=== PATIENT | male | born 1945 | race Hispanic/Latino ===

== ENCOUNTER 2021-01-18 08:17 | Inpatient (IN) | payer MEDICARE, OTHER ==
[~2021-01-18] VITALS: Ht 177.8 cm; Wt 122.9 kg
[2021-01-18] VITALS (7 sets, daily range): BP systolic 117–128; BP diastolic 72–108
[2021-01-18] MEDS ORDERED: DILTIAZEM HCL 5 MG/ML 5 ML VIAL IV STA (08:22)
[2021-01-18] MEDS ORDERED: LISINOPRIL-HCT1 EACH PO (08:39)
[2021-01-18] MEDS ORDERED: DOXAZOSIN MESYLA2 MG PO (08:39)
[2021-01-18] MEDS ORDERED: LEVOTHYROXINE100 MC1 IV (08:39)
[2021-01-18] MEDS ORDERED: SIMVASTATIN20 MG PO (08:39)
[2021-01-18] MEDS ORDERED: AMANTADINE100 M1 PO (08:39)
[2021-01-18] MEDS ORDERED: SYNTHROID75 MCG PO (08:39)
[2021-01-18] MEDS ORDERED: METFORMIN HCL500 MG PO (08:44)
[2021-01-18 09:04] LABS: BASOPHILS # (AUTO) 0.1 (0.0-0.1); BASOPHILS % 0.3 % (0.0-1.0); EOSINOPHILS % 0.1 % (0.0-6.0); HEMATOCRIT 48.4 % (38.2-49.6); HEMOGLOBIN 15.9 g/dL (14.0-18.0); LYMPHOCYTES # (AUTO) 1.1 (1.0-3.2); LYMPHOCYTES % 7.3 % (18.0-39.1); MEAN CORPUSCULAR HEMOGLOBIN 31.6 pg (28-32); MEAN CORPUSCULAR HGB CONC 32.9 g/dL (31-35); MEAN CORPUSCULAR VOLUME 96.2 fL (81-99); MONOCYTES # (AUTO) 1.4 (0.2-0.8); MONOCYTES % 9.4 % (4.4-11.3); NEUTROPHILS # (AUTO) 12.1 (2.1-6.9); NEUTROPHILS % 82.6 % (38.7-80.0); PLATELET COUNT 168 x10e3/uL (140-360); RED BLOOD COUNT 5.03 x10e6/uL (4.3-5.7)
[2021-01-18 09:17] LABS: INR 1.12; PROTHROMBIN TIME 14.9 seconds (11.9-14.5)
[2021-01-18 09:18] LABS: PARTIAL THROMBOPLASTIN TIME 34.5 seconds (23.8-35.5)
[2021-01-18 09:27] LABS: ALBUMIN 3.7 g/dL (3.5-5.0); ANION GAP 17.7 mmol/L (8-16); CALCIUM 9.4 mg/dL (8.4-10.2); CREATININE, SERUM 1.11 mg/dL (0.72-1.25); MAGNESIUM 1.9 MG/DL (1.3-2.1); POTASSIUM 3.7 mmol/L (3.5-5.1)
[2021-01-18 09:28] LABS: B-TYPE NATRIURETIC PEPTIDE2 83.8 pg/mL (0-100)
[2021-01-18] MEDS ORDERED: DILTIAZEM HCL 60 MG TAB PO SCH (09:45)
[2021-01-18 09:46] LABS: CREATINE KINASE MB 0.7 ng/mL (0-5.0); THYROID STIMULATING HORMONE 0.875 uIU/mL (0.350-4.940)
[2021-01-18] MEDS ORDERED: CEFTRIAXONE 1 GM VIAL ONE (09:58)
[2021-01-18] MEDS ORDERED: CEFTRIAXONE 1 GM in SODIUM CHLORIDE 0.9% 50ML 50 ML IV ONE (10:00)
[2021-01-18] MEDS: ENOXAPARIN SODIUM INJ 100 MG/ML SYR SC SCH ×2 (10:35→21:37)
[2021-01-18 10:43] LABS: CLARITY,URINE CLEAR (CLEAR); COLOR,URINE YELLOW (YELLOW); KETONES,URINE 2+ (NEGATIVE); LEUKOCYTE ESTERASE ,URINE NEGATIVE (NEGATIVE); NITRITE,URINE NEGATIVE (NEGATIVE); PROTEIN,URINE DIPSTICK 1+ (NEGATIVE); URINE UROBILINOGEN 1 mg/dL (0.2 - 1)
[2021-01-18] MEDS ORDERED: ONDANSETRON HCL INJ 2MG/ML 2ML 2 MG/ML VIAL IV PRN (11:00)
[2021-01-18] MEDS ORDERED: DEXTROSE 50% SYRINGE 50 ML IV PRN (11:00)
[2021-01-18 11:01] LABS: BACTERIA,URINE MODERATE /HPF; EPITHELIAL CELLS,URINE FEW /LPF; RBC,URINE 0-5 /HPF (0-5)
[2021-01-18] MEDS: INSULIN LISPRO 100 UNIT/1 ML 3ML VIAL SQ SCH ×3 (11:30→20:23)
[2021-01-18] MEDS: GUAIFENESIN 600 MG TAB PO SCH ×2 (12:41→16:50)
[2021-01-18] MEDS: METOPROLOL TARTRATE 25 MG TAB PO SCH ×2 (12:41→22:14)
[2021-01-18] MEDS ORDERED: BENZONATATE 100 MG CAP PO PRN (13:15)
[2021-01-18 15:15] LABS: CREATINE KINASE 41 IU/L (30-200)
[2021-01-18] MEDS ORDERED: FUROSEMIDE INJ 10 MG/ML 4 ML VIAL IV ONE (17:30)
[2021-01-18] MEDS ORDERED: POTASSIUM CHLORIDE 20 MEQ TAB CR PO STA (17:52)
[2021-01-18] MEDS ORDERED: MAGNESIUM SULFATE 2GM/50ML 50 ML IV ONE (18:00)
[2021-01-18] MEDS ORDERED: SODIUM CHLORIDE 0.9% 50ML 50 ML ONE (18:40)
[2021-01-18] MEDS: SIMVASTATIN 20 MG TAB PO SCH (20:15)
[2021-01-18] MEDS: MORPHINE SULFATE INJ 2 MG/ML SYR IV PRN (20:15)
[2021-01-19] VITALS (12 sets, daily range): BP systolic 82–121; BP diastolic 58–73
[2021-01-19] MEDS: LEVOTHYROXINE SODIUM 100 MCG TAB PO SCH (05:25)
[2021-01-19 05:56] LABS: BASOPHILS # (AUTO) 0.1 (0.0-0.1); BASOPHILS % 0.4 % (0.0-1.0); EOSINOPHILS # (AUTO) 0.1 (0.0-0.4); EOSINOPHILS % 0.6 % (0.0-6.0); HEMATOCRIT 43.9 % (38.2-49.6); HEMOGLOBIN 14.7 g/dL (14.0-18.0); LYMPHOCYTES # (AUTO) 1.5 (1.0-3.2); LYMPHOCYTES % 11.8 % (18.0-39.1); MEAN CORPUSCULAR HEMOGLOBIN 31.5 pg (28-32); MEAN CORPUSCULAR HGB CONC 33.5 g/dL (31-35); MONOCYTES # (AUTO) 1.3 (0.2-0.8); MONOCYTES % 10.3 % (4.4-11.3); NEUTROPHILS # (AUTO) 9.6 (2.1-6.9); NEUTROPHILS % 76.3 % (38.7-80.0); PLATELET COUNT 166 x10e3/uL (140-360); RED BLOOD COUNT 4.67 x10e6/uL (4.3-5.7); RED CELL DISTRIBUTION WIDTH 13.1 % (11.7-14.4)
[2021-01-19 06:25] LABS: MAGNESIUM 2.1 MG/DL (1.3-2.1)
[2021-01-19 06:26] LABS: ALBUMIN 3.2 g/dL (3.5-5.0); ALBUMIN/GLOBULIN RATIO 0.8 (0.8-2.0); ANION GAP 13.8 mmol/L (8-16); CHOL/HDL RATIO 2.1 (3.9-4.7); CREATININE, SERUM 1.05 mg/dL (0.72-1.25); POTASSIUM 3.8 mmol/L (3.5-5.1)
[2021-01-19 06:46] LABS: THYROID STIMULATING HORMONE 1.203 uIU/mL (0.350-4.940)
[2021-01-19 07:07] LABS: CREATINE KINASE MB 0.7 ng/mL (0-5.0)
[2021-01-19] MEDS: INSULIN LISPRO 100 UNIT/1 ML 3ML VIAL SQ SCH ×4 (07:30→21:00)
[2021-01-19] MEDS: CEFTRIAXONE 1 GM in SODIUM CHLORIDE 0.9% 50ML 50 ML IV SCH (09:21)
[2021-01-19] MEDS: DOXAZOSIN MESYLATE 2 MG TAB PO SCH (09:21)
[2021-01-19] MEDS: GUAIFENESIN 600 MG TAB PO SCH ×2 (09:22→17:03)
[2021-01-19] MEDS ORDERED: FUROSEMIDE INJ 10 MG/ML 4 ML VIAL IV ONE (10:30)
[2021-01-19] MEDS ORDERED: APIXABAN 5 MG TABLET PO SCH (10:30)
[2021-01-19] MEDS ORDERED: ENOXAPARIN SODIUM INJ 100 MG/ML SYR SC SCH ×2 (11:00)
[2021-01-19] MEDS ORDERED: ENOXAPARIN SODIUM INJ 100 MG/ML SYR SC ONE (11:30)
[2021-01-19] MEDS: METOPROLOL TARTRATE 25 MG TAB PO SCH ×2 (11:53→23:00)
[2021-01-19] MEDS ORDERED: ONDANSETRON HCL 4 MG ORAL DISINTEGRATING TAB PO PRN (14:15)
[2021-01-19] MEDS: AMANTADINE HCL 100 MG CAP PO SCH (17:03)
[2021-01-19] MEDS: SIMVASTATIN 20 MG TAB PO SCH (21:01)
[2021-01-20] VITALS (19 sets, daily range): BP systolic 80–110; BP diastolic 57–77
[2021-01-20 05:56] LABS: BASOPHILS # (AUTO) 0.1 (0.0-0.1); BASOPHILS % 0.6 % (0.0-1.0); EOSINOPHILS # (AUTO) 0.1 (0.0-0.4); EOSINOPHILS % 1.3 % (0.0-6.0); HEMATOCRIT 40.5 % (38.2-49.6); HEMOGLOBIN 13.3 g/dL (14.0-18.0); LYMPHOCYTES # (AUTO) 1.7 (1.0-3.2); LYMPHOCYTES % 17.6 % (18.0-39.1); MEAN CORPUSCULAR HEMOGLOBIN 31.4 pg (28-32); MEAN CORPUSCULAR HGB CONC 32.8 g/dL (31-35); MEAN CORPUSCULAR VOLUME 95.5 fL (81-99); MONOCYTES % 10.4 % (4.4-11.3); NEUTROPHILS # (AUTO) 6.6 (2.1-6.9); NEUTROPHILS % 69.8 % (38.7-80.0); PLATELET COUNT 158 x10e3/uL (140-360); RED BLOOD COUNT 4.24 x10e6/uL (4.3-5.7)
[2021-01-20] MEDS: LEVOTHYROXINE SODIUM 100 MCG TAB PO SCH (06:00)
[2021-01-20 06:39] LABS: ANION GAP 16.2 mmol/L (8-16); CALCIUM 8.8 mg/dL (8.4-10.2); CREATININE, SERUM 1.21 mg/dL (0.72-1.25); POTASSIUM 3.2 mmol/L (3.5-5.1)
[2021-01-20] MEDS ORDERED: HEPARIN SOD (PORCINE) 1000 UNIT/ML 30ML ONE (07:13)
[2021-01-20] MEDS ORDERED: LIDOCAINE HCL 2% LOCAL 20 ML VIAL ONE (07:13)
[2021-01-20] MEDS ORDERED: MIDAZOLAM HCL 2 MG/2 ML VIAL ONE (07:13)
[2021-01-20] MEDS ORDERED: FENTANYL CITRATE/PF 100MCG/2 ML INJ ONE (07:13)
[2021-01-20] MEDS ORDERED: VERAPAMIL HCL 2.5 MG/ML 2 ML VIAL ONE (07:13)
[2021-01-20] MEDS ORDERED: IOPAMIDOL 370 MG/ML 200 ML INFUS..BTL INJ ONE (07:15)
[2021-01-20] MEDS ORDERED: HEPARIN SOD/SOD CHLORIDE 2,000 ML ONE (07:15)
[2021-01-20] MEDS ORDERED: NITROGLYCERIN/D5W 200 MCG/ML 250 ML ONE (07:15)
[2021-01-20] MEDS ORDERED: SODIUM CHLORIDE 0.9% 1000ML 1,000 ML ONE (07:15)
[2021-01-20] MEDS: INSULIN LISPRO 100 UNIT/1 ML 3ML VIAL SQ SCH ×4 (07:30→20:48)
[2021-01-20] MEDS: CEFTRIAXONE 1 GM in SODIUM CHLORIDE 0.9% 50ML 50 ML IV SCH (08:41)
[2021-01-20] MEDS: DOXAZOSIN MESYLATE 2 MG TAB PO SCH (08:41)
[2021-01-20] MEDS: AMANTADINE HCL 100 MG CAP PO SCH (08:42)
[2021-01-20] MEDS: GUAIFENESIN 600 MG TAB PO SCH ×2 (08:42→17:07)
[2021-01-20] MEDS ORDERED: CLOPIDOGREL BISULFATE 75 MG TAB ONE ×2 (09:04→09:05)
[2021-01-20] MEDS ORDERED: ASPIRIN 325 MG TAB ONE (09:04)
[2021-01-20] MEDS ORDERED: ACETAMINOPHEN 325 MG TAB PO PRN (10:15)
[2021-01-20] MEDS ORDERED: SODIUM CHLORIDE 0.9% 1000ML 1,000 ML IV SCH (10:45)
[2021-01-20] MEDS: METOPROLOL TARTRATE 25 MG TAB PO SCH ×2 (11:00→23:42)
[2021-01-20] MEDS ORDERED: ACETAMINOPHEN 325 MG/10 ML UDC PO PRN (11:15)
[2021-01-20] MEDS: MORPHINE SULFATE INJ 2 MG/ML SYR IV PRN ×2 (11:45→15:11)
[2021-01-20] MEDS ORDERED: NITROGLYCERIN 0.4 MG SUBL SL ONE (12:15)
[2021-01-20] MEDS ORDERED: BENZONATATE 100 MG CAP PO PRN (13:30)
[2021-01-20 14:27] LABS: CREATINE KINASE MB 1.3 ng/mL (0-5.0)
[2021-01-20] MEDS ORDERED: APIXABAN 5 MG TABLET PO SCH (17:00)
[2021-01-20] MEDS ORDERED: POTASSIUM CHLORIDE 20 MEQ TAB CR PO NR (20:00)
[2021-01-20 20:45] LABS: CREATINE KINASE MB 1.1 ng/mL (0-5.0)
[2021-01-21] VITALS (7 sets, daily range): BP systolic 104–120; BP diastolic 66–84
[2021-01-21 05:01] LABS: BASOPHILS # (AUTO) 0.1 (0.0-0.1); BASOPHILS % 0.5 % (0.0-1.0); EOSINOPHILS # (AUTO) 0.1 (0.0-0.4); EOSINOPHILS % 0.7 % (0.0-6.0); HEMATOCRIT 39.2 % (38.2-49.6); HEMOGLOBIN 13.2 g/dL (14.0-18.0); LYMPHOCYTES # (AUTO) 1.2 (1.0-3.2); LYMPHOCYTES % 11.5 % (18.0-39.1); MEAN CORPUSCULAR HEMOGLOBIN 31.3 pg (28-32); MEAN CORPUSCULAR HGB CONC 33.7 g/dL (31-35); MEAN CORPUSCULAR VOLUME 92.9 fL (81-99); MONOCYTES # (AUTO) 1.1 (0.2-0.8); NEUTROPHILS # (AUTO) 7.7 (2.1-6.9); NEUTROPHILS % 75.9 % (38.7-80.0); PLATELET COUNT 157 x10e3/uL (140-360); RED BLOOD COUNT 4.22 x10e6/uL (4.3-5.7); RED CELL DISTRIBUTION WIDTH 12.9 % (11.7-14.4)
[2021-01-21 05:28] LABS: ALBUMIN 2.7 g/dL (3.5-5.0); ALBUMIN/GLOBULIN RATIO 0.8 (0.8-2.0); ANION GAP 13.8 mmol/L (8-16); CALCIUM 8.6 mg/dL (8.4-10.2); CREATININE, SERUM 1.12 mg/dL (0.72-1.25); POTASSIUM 3.8 mmol/L (3.5-5.1)
[2021-01-21 05:50] LABS: CREATINE KINASE MB 1.6 ng/mL (0-5.0)
[2021-01-21] MEDS: LEVOTHYROXINE SODIUM 100 MCG TAB PO SCH (06:00)
[2021-01-21] MEDS: INSULIN LISPRO 100 UNIT/1 ML 3ML VIAL SQ SCH ×4 (07:30→21:00)
[2021-01-21] MEDS: AMANTADINE HCL 100 MG CAP PO SCH (08:50)
[2021-01-21] MEDS: CEFTRIAXONE 1 GM in SODIUM CHLORIDE 0.9% 50ML 50 ML IV SCH (08:50)
[2021-01-21] MEDS: CLOPIDOGREL BISULFATE 75 MG TAB PO SCH (08:50)
[2021-01-21] MEDS: GUAIFENESIN 600 MG TAB PO SCH ×2 (08:50→17:22)
[2021-01-21] MEDS: ATORVASTATIN 40 MG TAB PO SCH (08:50)
[2021-01-21] MEDS: METOPROLOL TARTRATE 25 MG TAB PO SCH (12:21)
[2021-01-21] MEDS ORDERED: ASPIRIN 81 MG CHEW TAB PO ONE (12:30)
[2021-01-21] MEDS: AMIODARONE HCL 200 MG TAB PO SCH ×2 (13:40→17:22)
[2021-01-21] MEDS: VALSARTAN/SACUBITRIL 24MG/26MG 1 EA TAB PO SCH (17:22)
[2021-01-22] MEDS: METOPROLOL TARTRATE 25 MG TAB PO SCH (00:51)
[2021-01-22 00:58] VITALS: BP 136/90
[2021-01-22 05:42] VITALS: BP 104/79
[2021-01-22] MEDS: LEVOTHYROXINE SODIUM 100 MCG TAB PO SCH (06:04)
[2021-01-22 07:13] VITALS: BP 110/73
[2021-01-22] MEDS: INSULIN LISPRO 100 UNIT/1 ML 3ML VIAL SQ SCH (07:30)
[2021-01-22 08:27] VITALS: BP 110/73
[2021-01-22] MEDS: GUAIFENESIN 600 MG TAB PO SCH (09:00)
[2021-01-22] MEDS: ATORVASTATIN 40 MG TAB PO SCH (09:00)
[2021-01-22] MEDS: AMIODARONE HCL 200 MG TAB PO SCH (09:00)
[2021-01-22] MEDS: CEFTRIAXONE 1 GM in SODIUM CHLORIDE 0.9% 50ML 50 ML IV SCH (09:00)
[2021-01-22] MEDS: CLOPIDOGREL BISULFATE 75 MG TAB PO SCH (09:00)
[2021-01-22] MEDS: VALSARTAN/SACUBITRIL 24MG/26MG 1 EA TAB PO SCH (09:00)
[2021-01-22] MEDS: AMANTADINE HCL 100 MG CAP PO SCH (09:00)
[2021-01-22 10:16] LABS: BASOPHILS # (AUTO) 0.1 (0.0-0.1); BASOPHILS % 0.6 % (0.0-1.0); EOSINOPHILS # (AUTO) 0.1 (0.0-0.4); HEMOGLOBIN 14.5 g/dL (14.0-18.0); LYMPHOCYTES % 11.9 % (18.0-39.1); MEAN CORPUSCULAR HEMOGLOBIN 31.7 pg (28-32); MEAN CORPUSCULAR VOLUME 96.1 fL (81-99); MONOCYTES # (AUTO) 0.9 (0.2-0.8); MONOCYTES % 10.4 % (4.4-11.3); NEUTROPHILS # (AUTO) 6.5 (2.1-6.9); NEUTROPHILS % 75.9 % (38.7-80.0); PLATELET COUNT 164 x10e3/uL (140-360); RED BLOOD COUNT 4.58 x10e6/uL (4.3-5.7); RED CELL DISTRIBUTION WIDTH 12.9 % (11.7-14.4)
[2021-01-22 10:50] LABS: ALBUMIN 2.8 g/dL (3.5-5.0); ALBUMIN/GLOBULIN RATIO 0.7 (0.8-2.0); ANION GAP 14.6 mmol/L (8-16); CALCIUM 9.1 mg/dL (8.4-10.2); CREATININE, SERUM 0.9 mg/dL (0.72-1.25); POTASSIUM 3.6 mmol/L (3.5-5.1)
[2021-01-22 11:13] VITALS: BP 121/70
[2021-01-22] MEDS ORDERED: FUROSEMIDE 20 MG TAB PO SCH (11:15)
[2021-01-22] MEDS ORDERED: APIXABAN 5 MG TABLET PO SCH (11:15)
[2021-01-22] MEDS ORDERED: PLAVIX75 MG PO (13:40)
[2021-01-22] MEDS ORDERED: AMIODARONE HCL200 MG PO (13:40)
[2021-01-22] MEDS ORDERED: ENTRESTO 24 MG1 EACH PO (13:40)
[2021-01-22] MEDS ORDERED: MUCINEX600 MG PO (13:40)
[2021-01-22] MEDS ORDERED: ATORVASTATIN CA40 MG PO (13:40)
[2021-01-22] MEDS ORDERED: LOPRESSOR25 MG PO (13:40)
[2021-01-22] MEDS ORDERED: ELIQUIS5 MG PO (13:40)
[2021-01-22] MEDS ORDERED: FUROSEMIDE20 MG PO (13:53)
[2021-01-22 15:05] VITALS: BP 136/78
[2021-01-22] MEDS ORDERED: AMIODARONE HCL 200 MG TAB PO SCH (21:00)
[2021-01-22] MEDS ORDERED: VALSARTAN/SACUBITRIL 24MG/26MG 1 EA TAB PO SCH (21:00)
[2021-01-23] MEDS ORDERED: ATORVASTATIN 40 MG TAB PO SCH (21:00)
== END 2021-01-22 17:13 | disposition home or self-care (01) | DRG 246 ==
LOC: ER 09:05 → ERHOLD 10:56 → MED/SURG2 12:13
PROVIDERS: ADMIT Internal Medicine; ATTEND Internal Medicine
PROC: 0270346 Dilation of Coronary Artery, One Artery, Bifurcation, with Drug-eluting Intraluminal Device, Percutaneous Approach (ICD-10-PCS; principal; 2021-01-20)
PROC: 4A023N7 Measurement of Cardiac Sampling and Pressure, Left Heart, Percutaneous Approach (ICD-10-PCS; 2021-01-20)
PROC: B2111ZZ Fluoroscopy of Multiple Coronary Arteries using Low Osmolar Contrast (ICD-10-PCS; 2021-01-20)
PROC: B2151ZZ Fluoroscopy of Left Heart using Low Osmolar Contrast (ICD-10-PCS; 2021-01-20)
DX: I48.0 Paroxysmal atrial fibrillation (principal); I50.23 Acute on chronic systolic (congestive) heart failure; J40 Bronchitis, not specified as acute or chronic; E11.9 Type 2 diabetes mellitus without complications; E03.9 Hypothyroidism, unspecified; I25.10 Atherosclerotic heart disease of native coronary artery without angina pectoris; E78.5 Hyperlipidemia, unspecified; Z87.891 Personal history of nicotine dependence; E66.9 Obesity, unspecified; Z68.38 Body mass index [BMI] 38.0-38.9, adult; I11.0 Hypertensive heart disease with heart failure; Z79.84 Long term (current) use of oral hypoglycemic drugs
CPT/HCPCS: 36415; 71045; 76937; 80048; 80053; 80061; 81001; 82550; 82553; 82948; 83036; 83605; 83690; 83735; 83880; 84443; 84484; 85025; 85610; 85730; 87040; 87086; 92928; 93005; 93306; 93458; 93970; 99251; 99284; C1725; C1760; C1769; C1876; C1887; C9600; J0456; J0696; J1644; J1650; J1940; J2001; J2250; J2270; J3010; J3475; J7030; J7050; Q9967; U0002